=== PATIENT | female | born 1990 | race Caucasian/White ===

== ENCOUNTER 2016-06-17 18:46 | Emergency (ER) | payer OTHER ==
[~2016-06-17] VITALS: Ht 157.5 cm; Wt 79.1 kg
[~2016-06-17 18:46] MED LIST: IBUP800 PO; PRENCAP6 PO; SENN1TAB11 PO
[2016-06-17 18:48] VITALS: BP 148/99; PULSE 108; RESP 20; TEMP 98.3; O2SAT 97
== END 2016-06-17 23:32 | disposition left against medical advice (07) ==
LOC: NED 18:46
DX: R68.89 Other general symptoms and signs (principal)
CPT/HCPCS: 99281